=== PATIENT | male | born 1950 | race Two or more races ===

== ENCOUNTER → 2016-08-09 | Day surgery (SDC) | payer OTHER ==
[~2016-08-09] MED LIST: AMLO10TA2 PO; AMLO5TAB2 PO; BETA0.052 TOPICAL; BISO10TA2 PO; BISO10TA5 PO; CALC0.009 TOPICAL; CLON1TAB PO; LACTATED RINGER'S 1000 ML INJ 1,000 ML ONE; LISI-587 PO; MELA5TAB15 PO; METF1000 PO; POTA-163 PO; POTA10TA2 PO; PROPOFOL 200 MG/20 ML AMP IV ONE; TAMS0.4C4 PO
--- NOTE | 2016-08-09 10:03 | GIPROC ---
[facility] [address] [facility], [address] COLONOSCOPY PROCEDURE REPORT EXAM DATE: 08/09/2016 PATIENT NAME: Gerson Azevedo MR #: [id number] BIRTHDATE: 1950 ENDOSCOPIST: Arpita Ashraf MD ORDER #: [id number]: Sheree Carrillo RN STATUS: outpatient INDICATIONS: The patient is a 65 yr old male here for a colonoscopy due to high risk patient with personal history of colonic polyps PROCEDURE PERFORMED: Colonoscopy with biopsy MEDICATIONS: None and Per Anesthesia. PREP QUALITY: The [place] Bowel Prep Score was Right colon 2, Mid colon 2, and Left colon 1. Total = 5. PREP TYPE:GoLytely ESTIMATED BLOOD LOSS: None CONSENT: The patient understands the risks and benefits of the procedure and understands that these risks include, but are not limited to: sedation, allergic reaction, infection, perforation and/or bleeding. Alternative means of evaluation and treatment include, among others: physical exam, x-rays, and/or surgical intervention. The patient elects to proceed with this endoscopic procedure. medical equipment was checked for proper function. Hand hygiene and appropriate measures for infection prevention was taken. After the risks, benefits and alternatives of the procedure were thoroughly explained, Informed consent was verified, confirmed and timeout was successfully executed by the treatment team. A digital exam revealed external hemorrhoids The EC-[id number] ([id number]) endoscope was introduced through the anus and advanced to the cecum, which was identified by both the appendix and ileocecal valve. The instrument was then slowly withdrawn as the colon was fully examined. COLON FINDINGS: Two polypoid shaped sessile polyps ranging between 3-5mm in size were found in the sigmoid colon. A biopsy was performed using cold forceps. Retroflexed views revealed internal hemorrhoids and Retroflexed views revealed medium internal hemorrhoids The scope was then completely withdrawn from the patient and the procedure terminated. PROCEDURE WITHDRAWAL TIME:6minutes ADVERSE EVENTS: There were no complications. IMPRESSIONS: 1. Two sessile polyps ranging between 3-5mm in size were found in the sigmoid colon; biopsy was performed using cold forceps 2. Retroflexed views revealed internal hemorrhoids 3. Retroflexed views revealed medium internal hemorrhoids 4. Revealed external hemorrhoids RECOMMENDATIONS: 1. Await biopsy results. Biopsy results will not be ready for 7-10 days. If you don't hear from us in two weeks, call our office for results. 2. Continue surveillance 3. Yearly hemoccult RECALL: Return 1 year Colonoscopy, pending biopsy results Arpita Ashraf MD eSigned: Arpita Ashraf MD 08/09/2016 10:03 AM cc: Ayesha Carver [facility] PATIENT NAME: Gerson Azevedo MR#: [id number]
== END | disposition home or self-care (01) ==
LOC: ESDC 08:09
PROVIDERS: ATTEND Internal Medicine Gastroenterology
DX: Z12.11 Encounter for screening for malignant neoplasm of colon (principal); Z86.010 Personal history of colon polyps; D12.5 Benign neoplasm of sigmoid colon; K64.8 Other hemorrhoids; K64.4 Residual hemorrhoidal skin tags
CPT/HCPCS: 00810; 45380; 88305; J7120